=== PATIENT | female | born 1965 | race Caucasian/White ===

== ENCOUNTER 2022-12-17 02:29 | Day surgery (SDC) | payer MEDICARE, MEDICAID, SELFPAY ==
[2022-12-10 13:07] VITALS: BMI 23.0
--- NOTE | 2022-12-10 13:13 | PC.NURSE ---
Report to the Outpatient Waiting Room, entrance under the green pavilion located off [facility], at time 0730 on date 12/17/22. Planned Procedure Time: 0930. Time changes happen often and if your time is changed the preop area will call you the afternoon before. - You and your visitor will be asked to self-screen and do not enter if you have any COVID symptoms. - A mask is optional within the hospital at this time. Patients may have clear liquids (water, carbonated beverages, clear teas, apple juice) until 3 hours prior to surgery with a maximum of 20 ounces. - No food from midnight until time of surgery Take the following medications with a SIP of water the morning of surgery: ALPRAZOLAM IF NEEDED, BUPROPION, GABAPENTIN, LEVOTHYROXINE, TOPIRAMATE DO NOT STOP ANY OF YOUR OTHER PRESCRIPTION MEDICATIONS PRIOR TO SURGERY EXCEPT THE FOLLOWING Medications to discontinue per physician: VITAMINS Date to take last dose: 12/13/[address] MATUTE Please no make-up, nail mauritanian, hairspray, perfume, deodorant, or body powder the day of surgery. No jewelry (including any body piercings) or valuables the day of surgery, leave them at home. Please take a shower or bath the night before, or the morning of, surgery with an antibacterial soap. Wear comfortable, loose fitting clothing. - Jewelry must be removed prior to entering the operating room. Rings and piercings that are not removed may be cut off. - The hospital will not accept responsibility for valuables. - Please leave all valuables, including medications, at home the day of surgery. If you are going home after surgery, a licensed transit bus driver must drive you home. - NO public transportation without another adult if you receive anesthesia. - We recommend that an adult stay with you for 24 hours following discharge. - We also recommend that you do not drive, make important decision, drink alcoholic beverages, or take any drugs that were not prescribed by your health care provider for at least 24 hours after your discharge time. Follow any additional instructions given to you from your surgeon. If you or anyone in your household have experienced Covid symptoms in the past week, please notify your surgeon or the nurse liaison at the phone number below for possible testing. Telephone instructions given to PT - MELI KILGORE and asked if any additional questions and then verbalized understanding. Patient advised to call surgeon office or pre surgery nurse liaison [phone] if any additional questions.
[2022-12-17 07:16] VITALS: BP 130/57; PULSE 68; RESP 16; TEMP 36.9; O2SAT 99
--- NOTE | 2022-12-17 07:19 | WPDHPUPDATE1 ---
History and Physical Update Update Date/Time: 12/17/22 07:19 History and Physical has been reviewed, including an updated exam of the patient. There are NO changes in the patient's condition. Risks, benefits, and alternatives have been discussed and questions answered. Patient agrees to proceed with procedure.
[2022-12-17] MEDS: LACTATED RINGERS 1,000 ML 30 ML IV CONT ×2 (07:42→10:23)
--- NOTE | 2022-12-17 08:15 | WPDANESEPPF ---
Anes - Initial Pre Proc Eval Procedure: Operation Date: 12/17/22 09:30 Proposed Procedures p Excision of Soft Tissue Mass Left Foot - Garret Retana JR, MD Date/Time: 12/17/22 08:15 Surgeon: Garret Retana JR, MD Pre Op Diagnosis: painful soft tissue mass L foot Patient Data Age: 57 Gender: F Height: 1.6 m Weight: 58.55 kg Last Vital Signs Temp 36.9 C 12/17/22 07:16 Pulse 68 12/17/22 07:16 Resp 16 12/17/22 07:16 BP 130/57 L 12/17/22 07:16 Pulse Ox 99 12/17/22 07:16 O2 Del Method Room Air 12/17/22 07:16 Allergies Allergy/AdvReac Type Severity Reaction Status Date / Time adhesive tape Allergy Intermediate Blister Verified 12/17/22 07:31 Home Medications Medication Instructions Recorded Confirmed Type cyclobenzaprine 5 mg tablet 5 mg PO .at night 12/12/19 12/17/22 History nabumetone 750 mg tablet 750 mg PO BID 12/12/19 12/17/22 History ergocalciferol (vitamin D2) 1,250 1,250 mcg PO 2XW #23 caps 01/14/20 12/17/22 Rx mcg (50,000 unit) capsule alprazolam 0.5 mg tablet 0.5 mg PO BID PRN anxiety 30 days 09/30/20 12/17/22 Rx #60 tabs levothyroxine 100 mcg tablet 100 mcg PO DAILY 90 days #90 tabs 09/30/20 12/17/22 Rx sumatriptan succinate 100 mg tablet 100 mg PO DAILY PRN migraine 09/30/20 12/17/22 Rx headache 30 days #10 tabs bupropion HCl 300 mg 24 hr tablet, 300 mg PO QAM 90 days #90 tabs 12/08/20 12/17/22 Rx extended release trazodone 150 mg tablet 150 mg PO DAILY 90 days #90 tabs 12/08/20 12/17/22 Rx alendronate 70 mg tablet 70 mg PO WEEKLY #12 tabs 12/10/20 12/10/22 Rx gabapentin 300 mg capsule 300 mg PO TID 12/10/22 12/17/22 History topiramate 50 mg tablet 50 mg PO PRN 12/17/22 12/17/22 History ubrogepant 50 mg tablet (Ubrelvy) 50 mg PO PRN PRN migraine headache 12/17/22 12/17/22 History Patient hx anesthesia problems: none Family hx anesthesia problems: none Results Review: All pre-operative results and documents have been reviewed as part of the pre-operative evaluation. [facility] Past Medical History Medical History (Updated 02/06/20 @ 14:29 by Davy Dash MD Hanny) Ganglion cyst of left foot Family History Family History Mother Family history of osteoporosis Family history of rheumatoid arthritis Sibling Family history of malignant neoplasm of breast in first degree relative Family history of malignant neoplasm of thyroid Other Cerebrovascular accident Family history of arthritis Family history of malignant neoplasm of breast Family history of mental disorder Family history of thyroid disease Social History Social History Smoking packs per day: 0.5 Smoking cigarettes per day: 10.0 Years smoked: 10 Smoking pack-years: 5.00 Smoking status: Current every day smoker Tobacco type: cigarettes Second hand tobacco smoke exposure: Yes Alcohol intake: current Drinks per week: 7 Substance use: current Substance use type: marijuana Living arrangements: with family Spiritual care concerns: No Anes - Eval Final PreProcedure Day of Procedure 12/17/22 08:15 Patient weight: normal Heart: regular rate and rhythm Lungs: clear to auscultation Airway: Mallampati scale class II Neurological: alert and oriented Last oral intake: >/= 8 hours ASA classification: III Emergent: no Anesthetic plan: proceed Anesthesia type and monitoring: general GIVS and standard monitoring Results Review: All pre-operative results and documents have been reviewed as part of the pre-operative evaluation. Informed Consent: The patient's anesthetic plan and its attendant risks and benefits were discussed with the patient/family/POA. Questions were solicited and answers provided to the satisfaction of the patient/family/POA.
[2022-12-17] MEDS: ceFAZolin 2 GM/D5W 50 ML 2 GM/50 ML BAG IVPB (09:37)
[2022-12-17] MEDS: LIDOCAINE HCL 2% LOCAL INJ 20 ML VIAL 10 ML INFILTRATE (09:57)
[2022-12-17] MEDS: BUPivacaine HCL 0.5% 10 ML AMP INFILTRATE (09:57)
[2022-12-17] MEDS: KETOROLAC 15 MG/ML VIAL (*BKC) IV PUSH (10:15)
[2022-12-17 10:23] VITALS: BP 84/40; PULSE 66; RESP 16
[2022-12-17 10:30] VITALS: BP 123/64; PULSE 66; RESP 16; O2SAT 98
--- NOTE | 2022-12-17 10:32 | W.PM.PROC2 ---
Procedure Note - Detailed Date of Procedure 12/17/22 Pre-op Diagnosis Painful soft tissue mass left foot Post-op Diagnosis Same Procedure Performed Removal of soft tissue mass left foot Surgeon Garret Retana JR, DPM Anesthesia MAC and Local Indications Painful soft tissue prominence left foot Findings Hypertrophic fibrous neural tissue proximal to the plantar third and fourth metatarsal phalangeal joint Description of Procedure Under mild sedation, the patient was brought in to the operating room, placed on the operating table in the supine position. A pneumatic ankle tourniquet was placed about the patient's ipsilateral ankle. Following IV sedation, local anesthesia was obtained about the ankle utilizing 20 mL of 0.5% Marcaine plain and 2% Lidocaine plain to with an ankle ring block. The foot was then scrubbed, prepped, and draped in the usual aseptic manner. An Esmarch bandage was then used to exsanguinate the patient's foot and the pneumatic ankle tourniquet was then inflated. An incision was made along the plantar 3rd inter metatarsal space where the marked area of maximum tenderness was noted. All bleeders were cauterized as necessary. I dissected deep to the plantar fascia, superficial to this area I noticed hypertrophic neural tissue and dissected proximal and resected the plantar digital nerve to the third intermetatarsal space. The firbrous fatty neural tissue was sent for gross and histopathology. I also cauterized superficial veins in the affected area as the patient had a prior varix resected previously. The deep subcutaneous tissue was reapproximated with 4.0 Vicryl and the skin was reapproximated with 3.0 Prolene in simple interrupted suture fashion technique. Upon completion of the procedure, the dorsal incision was dressed with Adaptic, 4x4s, Kerlix, and Coban. The pneumatic ankle tourniquet was then deflated and a prompt hyperemic response was noted to all digits of the affected foot. A surgical shoe was then applied. The patient did very well with the procedure and the anesthesia. The patient was transferred to the recovery room with vital signs stable and vascular status intact to all toes of the affected foot. Following a period of postoperative monitoring, the patient will be discharged home on the following written and oral postoperative instructions: 1. The patient should keep the dressing clean, dry, and intact. Use a cast protector bag with showers. 2. The patient will be strictly protected weight bearing with a surgical shoe. 3. Patient should ice and elevate the foot when at rest. 4. The patient is to contact Dr. Retana for all postop care and if any problems arise. 5. Prescriptions were written for Percocet 5/325 dispensed 40 to be taken 1 p.o. q.4-6 hours as needed for severe pain. Estimated Blood Loss 1 Drains No Packing No Pathology Yes (Neural fibrous tissue found deep to the affected area of maximum tenderness.) Complications No immediate complications Condition Stable Disposition Observation
[2022-12-17 11:00] VITALS: BP 111/49; PULSE 62; RESP 15
== END 2022-12-17 11:23 | disposition home or self-care (01) ==
PROVIDERS: PCP Family Medicine; Visit Provider Podiatrist Foot & Ankle Surgery
PROC: (CPT 28039; principal; 2022-12-17 09:30)
DX: M79.89 Other specified soft tissue disorders (principal); F17.210 Nicotine dependence, cigarettes, uncomplicated
CPT/HCPCS: 28039; 88304; J0131; J0690; J1100; J1885; J2250; J2405; J2704; J3010; J7120

== ENCOUNTER 2023-10-07 00:39 | Day surgery (SDC) | payer MEDICARE, MEDICAID, SELFPAY ==
[2023-09-19 09:55] VITALS: BMI 24.0
--- NOTE | 2023-10-03 12:15 | PC.NURSE ---
Pt had called 09/23/2023 with Bronchitis and started medications- discussed talking today for update and she states she is much better, cough is gone and will take last 2 doses of prednisone. Pt wishes to go forward with procedures on 10/07/2023- she will call back if any increase in symptoms or fever.
--- NOTE | 2023-10-05 14:50 | SUR.PREOP ---
LM to verify appointment.
--- NOTE | 2023-10-05 19:15 | PM.HPGS ---
History of Present Illness History of Present Illness Consent: Risks, benefits, and alternatives have been discussed and questions answered. Patient agrees to proceed with procedure. Chief complaint: hx peptic ulcer disease,epigastric pain Narrative: Anjelica Jimenes is a 58 year old female complaints of epigastric pain and bilateral lower abdominal pain.? States symptoms started back in June 2023. States she presented to [facility] in [place] with c/o ? Epigastric pain that radiates to the left upper quadrant.? She reports associated nausea, and loose, dark stools.? Epigastric pain is worse with not eating. Patient also reports bilateral lower abdominal pain, near suprapubic/groin area. Per pt, CT scan was performed and she was told her gastric ulcer was acting up .? She was admitted for 1-2 days but unfortunately have no records to review. During her admission she was given IV fluids and pain medications, no EGD done. States after being admitted to the hospital she was started on Carafate q.i.d. with meals per PCP which has helped with the upper abdominal pain.? she has history of polyps and of ulcers. Her last EGD and colonoscopy were 5 years ago and both were unremarkable. Review of Systems Review of Systems: All systems reviewed & are unremarkable except as noted in HPI and below PMFSH Past Medical History Medical History Encounter for screening colonoscopy Epigastric pain Ganglion cyst of left foot History of gastric ulcer Lower abdominal pain Surgical History Surgical History H/O cervical spine surgery History of foot surgery Family History Family History Mother Family history of osteoporosis Family history of rheumatoid arthritis Sibling Family history of malignant neoplasm of breast in first degree relative Family history of malignant neoplasm of thyroid Other Cerebrovascular accident Family history of arthritis Family history of malignant neoplasm of breast Family history of mental disorder Family history of thyroid disease Social History Social History Smoking packs per day: 0.75 Smoking cigarettes per day: 15.0 Years smoked: 10 Smoking pack-years: 7.50 Smoking status: Current every day smoker Tobacco type: cigarettes Second hand tobacco smoke exposure: Yes Alcohol intake: former Drinks per week: 7 Alcohol use details: previous etoh use 7/week, none now due to ulcer Substance use: current Substance use type: marijuana Other substance usage details: smoke marijuana daily per vape Living arrangements: with family Spiritual care concerns: No Meds Home Medications and Allergies Home Medications Medication Instructions Recorded Confirmed Type nabumetone 750 mg tablet 750 mg PO PRN PRN Pain 12/12/19 10/07/23 History ergocalciferol (vitamin D2) 1,250 1,250 mcg PO 2XW #23 caps 01/14/20 10/07/23 Rx mcg (50,000 unit) capsule alprazolam 0.5 mg tablet 0.5 mg PO BID PRN anxiety 30 days 09/30/20 09/19/23 Rx #60 tabs levothyroxine 100 mcg tablet 100 mcg PO DAILY 90 days #90 tabs 09/30/20 10/07/23 Rx sumatriptan succinate 100 mg tablet 100 mg PO DAILY PRN migraine 09/30/20 10/07/23 Rx headache 30 days #10 tabs trazodone 150 mg tablet 150 mg PO DAILY 90 days #90 tabs 12/08/20 10/07/23 Rx alendronate 70 mg tablet 70 mg PO WEEKLY #12 tabs 12/10/20 09/19/23 Rx gabapentin 300 mg capsule 300 mg PO PRN PRN Pain 12/10/22 10/07/23 History ubrogepant 50 mg tablet (Ubrelvy) 50 mg PO PRN PRN migraine headache 12/17/22 10/07/23 History pantoprazole 20 mg tablet,delayed 20 mg PO QAM 08/22/23 10/07/23 History release sucralfate 1 gram tablet 1 g PO TID 08/22/23 10/07/23 History L.acidop,casei,lactis,rham-B.lact,carlos 1 cap PO DAILY 09/19/23 10/07/23 History
[2023-10-07 07:19] VITALS: BP 128/69; PULSE 69; RESP 16; TEMP 36.4; O2SAT 100
[2023-10-07] MEDS: LACTATED RINGERS 1,000 ML 150 ML IV CONT (07:31)
--- NOTE | 2023-10-07 07:40 | WPDANESEPPF ---
Anes - Initial Pre Proc Eval Procedure: Operation Date: 10/07/23 08:00 Proposed Procedures p Esophagogastroduodenoscopy & Colonoscopy - Jagdeep Giron MD Date/Time: 10/07/23 07:40 Surgeon: Jagdeep Giron MD Pre Op Diagnosis: hx peptic ulcer disease,epigastric pain Patient Data Age: 58 Gender: F Height: 1.6 m Weight: 65.4 kg Last Vital Signs Temp 36.4 C 10/07/23 07:19 Pulse 69 10/07/23 07:19 Resp 16 10/07/23 07:19 BP 128/69 10/07/23 07:19 Pulse Ox 100 10/07/23 07:19 O2 Del Method Room Air 10/07/23 07:19 Allergies Allergy/AdvReac Type Severity Reaction Status Date / Time adhesive tape Allergy Intermediate Blister Verified 10/07/23 07:17 Home Medications Medication Instructions Recorded Confirmed Type nabumetone 750 mg tablet 750 mg PO PRN PRN Pain 12/12/19 09/19/23 History ergocalciferol (vitamin D2) 1,250 1,250 mcg PO 2XW #23 caps 01/14/20 09/19/23 Rx mcg (50,000 unit) capsule alprazolam 0.5 mg tablet 0.5 mg PO BID PRN anxiety 30 days 09/30/20 09/19/23 Rx #60 tabs levothyroxine 100 mcg tablet 100 mcg PO DAILY 90 days #90 tabs 09/30/20 09/19/23 Rx sumatriptan succinate 100 mg tablet 100 mg PO DAILY PRN migraine 09/30/20 09/19/23 Rx headache 30 days #10 tabs trazodone 150 mg tablet 150 mg PO DAILY 90 days #90 tabs 12/08/20 09/19/23 Rx alendronate 70 mg tablet 70 mg PO WEEKLY #12 tabs 12/10/20 09/19/23 Rx gabapentin 300 mg capsule 300 mg PO PRN PRN Pain 12/10/22 09/19/23 History ubrogepant 50 mg tablet (Ubrelvy) 50 mg PO PRN PRN migraine headache 12/17/22 09/19/23 History pantoprazole 20 mg tablet,delayed 20 mg PO QAM 08/22/23 09/19/23 History release sucralfate 1 gram tablet 1 g PO TID 08/22/23 09/19/23 History sodium,potassium,mag sulfates 17.5 See Rx Instructions PO .COMPLEX 08/26/23 09/19/23 Rx gram-3.13 gram-1.6 gram oral soln #354 mL (Suprep Bowel Prep Kit) L.acidop,casei,lactis,rham-B.lact,carlos 1 cap PO DAILY 09/19/23 09/19/23 History 625 mg (10 billion cell) capsule (Advanced Probiotic) Patient hx anesthesia problems: none Family hx anesthesia problems: none Results Review: All pre-operative results and documents have been reviewed as part of the pre-operative evaluation. [facility] Past Medical History Medical History (Updated 08/22/23 @ 14:47 by TWAN Chapman) Encounter for screening colonoscopy Epigastric pain Ganglion cyst of left foot History of gastric ulcer Lower abdominal pain Surgical History Surgical History (Updated 10/07/23 @ 07:40 by Lamonte Gamez MD) H/O cervical spine surgery History of foot surgery Family History Family History Mother Family history of osteoporosis Family history of rheumatoid arthritis Sibling Family history of malignant neoplasm of breast in first degree relative Family history of malignant neoplasm of thyroid Other Cerebrovascular accident Family history of arthritis Family history of malignant neoplasm of breast Family history of mental disorder Family history of thyroid disease Social History Social History Smoking packs per day: 0.75 Smoking cigarettes per day: 15.0 Years smoked: 10 Smoking pack-years: 7.50 Smoking status: Current every day smoker Tobacco type: cigarettes Second hand tobacco smoke exposure: Yes Alcohol intake: former Drinks per week: 7 Alcohol use details: previous etoh use 7/week, none now due to ulcer Substance use: current Substance use type: marijuana Other substance usage details: smoke marijuana daily per vape Living arrangements: with family Spiritual care concerns: No Anes - Eval Final PreProcedure Day of Procedure 10/07/23 07:40 Patient weight: normal Heart: regular rate and rhythm Lungs: clear to auscultation Airway: Mallampati scale class II Neurological: alert and oriented Last oral intake
--- NOTE | 2023-10-07 08:38 | SUR.OPER ---
EGD START 812, END 815 COLONOSCOPY START 821, END 837
[2023-10-07 08:42] VITALS: BP 135/63; PULSE 70; RESP 22; O2SAT 100
[2023-10-07 08:51] VITALS: BP 114/68; PULSE 60; RESP 16; O2SAT 100
[2023-10-07 09:07] VITALS: BP 114/67; PULSE 58; RESP 16; O2SAT 100
== END 2023-10-07 09:09 | disposition home or self-care (01) ==
PROVIDERS: PCP Family Medicine; Visit Provider Internal Medicine Gastroenterology
PROC: 0DJ08ZZ Inspection of Upper Intestinal Tract, Via Natural or Artificial Opening Endoscopic (ICD-10-PCS; CPT 43235; principal; 2023-10-07 08:00)
DX: Z12.11 Encounter for screening for malignant neoplasm of colon (principal); D12.0 Benign neoplasm of cecum; K62.1 Rectal polyp; K64.8 Other hemorrhoids; K57.30 Diverticulosis of large intestine without perforation or abscess without bleeding; K31.89 Other diseases of stomach and duodenum; K21.00 Gastro-esophageal reflux disease with esophagitis, without bleeding; F17.210 Nicotine dependence, cigarettes, uncomplicated; F12.90 Cannabis use, unspecified, uncomplicated; Z79.83 Long term (current) use of bisphosphonates; Z98.1 Arthrodesis status; Z80.3 Family history of malignant neoplasm of breast; Z80.8 Family history of malignant neoplasm of other organs or systems; Z82.49 Family history of ischemic heart disease and other diseases of the circulatory system
CPT/HCPCS: 43239; 45380; 45385; 88305; J2704; J7120